=== PATIENT | female | born 1985 | race Caucasian/White ===

== ENCOUNTER 2017-03-16 01:23 | Emergency (ER) | payer MEDICAID ==
[2017-03-16 01:42] VITALS: BP 154/78
[2017-03-16] MEDS ORDERED: Ondansetron 4 MG Tab.DIS PO ONE (01:49)
[2017-03-16] MEDS ORDERED: Acetaminophen/oxyCODONE 325-5 MG Tab PO ONE (01:51)
--- NOTE | 2017-03-16 03:07 | EDM.PDOC ---
ED HPI GENERAL MEDICAL PROBLEM - General Chief Complaint: General Stated Complaint: [facility] Time Seen by Provider: 03/16/17 01:47 Right Leg Pain Score (Numeric/FACES): 10 - Related Data Allergies Allergy/AdvReac Type Severity Reaction Status Date / Time No Known Allergies Allergy Verified 03/16/17 01:28 Home Meds: Home Meds Docusate Sodium [Colace] 100 mg PO BID 01/19/14 [History] Gabapentin [Neurontin] 600 mg PO QID 01/19/14 [History] Sertraline [Zoloft] 100 mg PO DAILY 04/06/14 [History] Acetaminophen [Tylenol Extra Strength] 1,000 mg PO ASDIRECTED PRN 03/16/17 [ History] Past Medical History Respiratory History: Reports: Asthma Psychiatric History: Reports: Anxiety Hematologic History: Reports: Blood Transfusion(s) Dermatologic History: Reports: Chronic Cellulitis, Other (See Below) Other Dermatologic History: MRSA - Infectious Disease History Infectious Disease History: Reports: Chicken Pox, MRSA - Past Surgical History GI Surgical History: Reports: Cholecystectomy Musculoskeletal Surgical History: Reports: Other (See Below) Other Musculoskeletal Surgeries/Procedures:: back fusion Social & Family History - Tobacco Use Smoking Status *Q: Current Every Day Smoker Years of Tobacco use: 15 Packs/Tins Daily: 0.5 Used Tobacco, but Quit: No Second Hand Smoke Exposure: Yes - Caffeine Use Caffeine Use: Reports: Coffee, Soda - Alcohol Use Days Per Week of Alcohol Use: 1 Number of Drinks Per Day: 3 Total Drinks Per Week: 3 - Recreational Drug Use Recreational Drug Use: No Drug Use in Last 12 Months: Yes Recreational Drug Type: Reports: Methamphetamine, Other (see below) Recreational Drug Use Frequency: Daily Recreational Drug Last Use: 2012 ED ROS GENERAL - Review of Systems Review Of Systems: See Below Constitutional: Reports: Malaise. Denies: Fever, Chills HEENT: Reports: No Symptoms Respiratory: Reports: No Symptoms Cardiovascular: Reports: No Symptoms Endocrine: Reports: No Symptoms GI/Abdominal: Reports: No Symptoms Musculoskeletal: Reports: Foot Pain Skin: Reports: Lesions (scattered areas of open sores that she picks at) Neurological: Reports: No Symptoms Psychiatric: Reports: No Symptoms ED EXAM, GENERAL - Physical Exam Exam: See Below Exam Limited By: No Limitations General Appearance: Alert, Mild Distress Nose: Normal Inspection Throat/Mouth: Normal Inspection Head: Atraumatic Neck: Normal Inspection Respiratory/Chest: No Respiratory Distress Cardiovascular: Normal Peripheral Pulses, Regular Rate, Rhythm GI/Abdominal: Normal Bowel Sounds, Soft Extremities: Normal Range of Motion, Other (right foot with no obvious redness, no swelling. Tender to palpation with some open sores on top of the toes). No: Evie's Sign Neurological: Alert, Oriented Psychiatric: Anxious, Tearful Skin Exam: Other (scattered picked lesions on face, arms and legs) Course - Vital Signs Last Recorded V/S: Last Vital Signs Temp 37.3 C 03/16/17 01:30 Pulse 96 03/16/17 01:30 Resp 24 H 03/16/17 01:30 BP 154/78 H 03/16/17 01:30 Pulse Ox 100 03/16/17 01:30 - Orders/Labs/Meds Labs: Laboratory Tests 03/16/17 03/16/17 Range/Units 02:13 02:13 WBC 10.6 (4.5-11.0) K/uL RBC 4.13 (3.30-5.50) M/uL Hgb 12.1 (12.0-15.0) g/dL Hct 35.9 L (36.0-48.0) % MCV 87 (80-98) fL MCH 29 (27-31) pg MCHC 34 (32-36) % Plt Count 233 (150-400) K/uL Neut % (Auto) 67 H (36-66) % Lymph % (Auto) 23 L (24-44) % [place] % (Auto) 6 (2-6) % Eos % (Auto) 4 (2-4) % Baso % (Auto) 0 (0-1) % Sodium 142 (140-148) mmol/L Potassium 4.5 (3.6-5.2) mmol/L Chloride 110 H (100-108) mmol/L Carbon Dioxide 26 (21-32) mmol/L Anion Gap 10.5 (5.0-14.0) mmol/L BUN 13 (7-18) mg/dL Creatinine 0.7 (0.6-1.0) mg/dL Est Cr Clr Drug Dosing 117.47 mL/min Estimated GFR (MDRD) > 60 (>60) Glucose 113 H (74-106) mg/dL Calcium 8.4 L (8.5-10.1) mg/dL Meds: Medications Discontinued Medications Generic Name Dose Route Start Last Admin Trade Name Vikash PRN Reason Stop Dose Admin Ondansetron HCl 4 mg 03/16/17 01:49 03/16/17 02:05 Zofran Odt PO 03/16/17 01:50 4 mg ONETIME ONE Administration Oxycodone/Acetaminophen 2 tab 03/16/17 01:51 03/16/17 02:05 Percocet 325-5 Mg PO 03/16/17 01:52 2 tab ONETIME ONE Administration Departure - Departure Time of Disposition: 03:06 Disposition: Home, Self-Care 01 Clinical Impression: Cellulitis, Cellulitis - Discharge Information Referrals: PCP,None [Primary Care Provider] - - Assessment/Plan Assessment:: 31 year old female with pain in right foot similar to pain she has in past with cellulitis. 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 Exam in the ED showed minimal redness in the right foot with some small open lesions on top of her toes. Labwork was normal. She has a hx of MRSA. She will be discharged with a script for Bactrim DS for 10 days and #10 tabs of percocet for her pain. She should come back if worsening symptoms
== END 2017-03-16 03:49 | disposition home or self-care (01) ==
LOC: JP.ED 01:23
DX: L03.115 Cellulitis of right lower limb (principal); J45.909 Unspecified asthma, uncomplicated; F41.9 Anxiety disorder, unspecified; Z86.14 Personal history of Methicillin resistant Staphylococcus aureus infection; F17.210 Nicotine dependence, cigarettes, uncomplicated; Z90.49 Acquired absence of other specified parts of digestive tract
CPT/HCPCS: 36415; 80048; 85025; 99284; A9270; 99283